=== PATIENT | male | born 1960 | race Two or more races ===

== ENCOUNTER 2017-07-19 14:34 | Emergency (ER) | payer MEDICAID, OTHER ==
[~2017-07-19] VITALS: Ht 167.6 cm; Wt 63.5 kg
[2017-07-19] MEDS ORDERED: FLUORESCEIN SODIUM 1 MG STRIP ONE (14:54)
[2017-07-19] MEDS ORDERED: PROPARACAINE HCL 0.5% 15 ML OPHTHALMIC SOLUTION OD ONE (16:45)
[2017-07-19] MEDS ORDERED: ERYTHROMYCIN 0.5% 3.5 GM TUBE OPHTHALMIC OINTMENT OD ONE (16:45)
[2017-07-19 18:13] VITALS: BP 138/75
== END 2017-07-19 18:53 | disposition home or self-care (01) ==
LOC: EMS 14:35
DX: S01.111A Laceration without foreign body of right eyelid and periocular area, initial encounter (principal); M19.90 Unspecified osteoarthritis, unspecified site; W45.8XXA Other foreign body or object entering through skin, initial encounter; Y93.89 Activity, other specified; Y92.89 Other specified places as the place of occurrence of the external cause; Y99.8 Other external cause status
CPT/HCPCS: 99283